=== PATIENT | male | born 1950 | race American Indian/Alaskan Native ===

== ENCOUNTER 2018-02-20 12:04 | Emergency (ER) | payer OTHER ==
[2018-02-20 12:27] VITALS: BP 120/70
[2018-02-20] MEDS ORDERED: MOTRIN PO ONE (13:35)
--- NOTE | 2018-02-20 13:42 | Emergency Department Report ---
ED Male HPI - General Chief complaint: Urogenital-Male Stated complaint: CRAMPS Time Seen by Provider: 02/20/18 13:33 Source: patient Mode of arrival: Ambulatory Limitations: No Limitations - History of Present Illness Initial comments: 67-year-old -[place] male with a past medical history of diabetes type 2 comes in complaining of right groin pain and states that this morning when he voided he saw some pink urine. Patient denies any swelling to the scrotal sac denies any dysuria. He reports that the pain is nonradiating right testicle pain. He say what makes it worse is movement makes it better is resting. He reports his pain 5 out of 10. His diabetes type 2 takes glyburide 5 mg twice a day. Reports that his last A1c was 8.7. Patient has no known drug allergies. Complaint: testicle pain (right), groin pain - Related Data Previous Rx's Medication Instructions Recorded Last Taken Type Ibuprofen [Motrin 600 MG tab] 600 mg PO Q8H PRN #15 tablet 02/20/18 Unknown Rx Levofloxacin [Levaquin TAB] 500 mg PO QDAY #10 tablet 02/20/18 Unknown Rx Allergies Allergy/AdvReac Type Severity Reaction Status Date / Time No Known Allergies Allergy Unverified 02/20/18 12:27 ED Review of Systems ROS: Stated complaint: CRAMPS Other details as noted in HPI ED Past Medical Hx - Past Medical History Hx Diabetes: Yes - Surgical History Past Surgical History?: No - Social History Smoking Status: Never Smoker Substance Use Type: None - Medications Home Medications: Home Medications Medication Instructions Recorded Confirmed Last Taken Type Ibuprofen [Motrin 600 MG tab] 600 mg PO Q8H PRN #15 tablet 02/20/18 Unknown Rx Levofloxacin [Levaquin TAB] 500 mg PO QDAY #10 tablet 02/20/18 Unknown Rx ED Physical Exam - General Limitations: No Limitations ED Course Vital Signs 02/20/18 12:22 Temperature 98.1 F Pulse Rate 83 Respiratory 16 Rate Blood Pressure 120/70 O2 Sat by Pulse 99 Oximetry ED Medical Decision Making - Radiology Data Radiology results: report reviewed, image reviewed CONCLUSION: Right epididymitis and small right hydrocele without sonographic evidence of testicular torsion, as described. Please correlate. Thank you for the opportunity to participate in this patient's care. Transcribed By: RS Dictated By: MIGUELITO MCKEON MD Electronically Authenticated By: MIGUELITO MCKEON MD Signed Date/Time: 02/20/181513 DD/ 09 TD/TT: 02/20/181513 - Medical Decision Making Patient's been evaluated by this provider fast track. I discussed the patient was given ibuprofen for pain. Testicular ultrasound, urinalysis and urine culture. As well as blood glucose [id number]. Critical care attestation.: If time is entered above; I have spent that time in minutes in the direct care of this critically ill patient, excluding procedure time. ED Disposition Clinical Impression: Epididymitis, right Disposition: DC-01 TO HOME OR SELFCARE Is pt being admited?: No Does the pt Need Aspirin: No Condition: Stable Instructions: Epididymitis (ED) Additional Instructions: Please complete antibiotics as prescribed. Please follow-up with urologist if symptoms persist or gets worse. Prescriptions: Ibuprofen [Motrin 600 MG tab] 600 mg PO Q8H PRN #15 tablet PRN Reason: Pain Levofloxacin [Levaquin TAB] 500 mg PO QDAY #10 tablet Referrals: PRIMARY CARE, [Primary Care Provider] - 3-5 Days SAURABH KNOX MD [Staff Physician] - 3-5 Days Forms: STI Treatment and Prevention, Accompanied Note
[2018-02-20 13:50] LABS: Bilirubin,Urine NEG (Negative); Blood,Urine NEG (Negative); Color,Urine Yellow (Yellow); Mucus,Urine FEW /HPF; Protein,Urine <15 mg/dL mg/dL (Negative); Urobilinogen,Urine < 2.0 mg/dL (<2.0)
--- NOTE | 2018-02-20 15:20 | Ultrasound Report ---
ULTRASOUND SCROTAL INDICATION: Right testicular pain. COMPARISON: None similar. FINDINGS: Longitudinal and transverse grayscale and color flow sonographic evaluation of the scrotum and its contents demonstrates normal testicular contour and echotexture bilaterally without suspicious intrinsic lesions. Preserved bilateral blood flow. Right testicle estimated at 3.8 x 2.3 x 3.1 cm while the left testicle is 4.5 x 2.1 x 2.8 cm. Unremarkable 1.1 x 0.5 x 1.3 cm left epididymis, image 32. Right epididymis mildly heterogeneous and hypervascular with epididymal head measuring 1.5 x 0.8 x 1.3 cm, image 13 with such changes also noted along its body and the tail as on image 20. Small right hydrocele also seen. CONCLUSION: Right epididymitis and small right hydrocele without sonographic evidence of testicular torsion, as described. Please correlate. Thank you for the opportunity to participate in this patient's care.
== END 2018-02-20 15:54 | disposition home or self-care (01) ==
LOC: ED 12:04
DX: N45.1 Epididymitis (principal)
CPT/HCPCS: 81001; 82962; 87086; 93975